=== PATIENT | female | born 1950 | race Hispanic/Latino ===

== ENCOUNTER → 2018-12-08 | Outpatient (CLI) | payer MEDICARE | LOC: RAD 11:42 | PROVIDERS: ATTEND Internal Medicine | DX: R07.9 Chest pain, unspecified (principal) | CPT/HCPCS: 93005 ==

== ENCOUNTER → 2019-04-28 | Outpatient (CLI) | payer MEDICARE ==
--- NOTE | 2019-05-06 13:51 | Polysomnography ---
DATE OF STUDY: REFERRING PHYSICIAN: STUDY: Polysomnography report. HISTORY OF PRESENT ILLNESS: The patient is a 68-year-old woman. She complains of snoring and excessive daytime sleepiness. She has difficulty initiating and maintaining sleep. INTERPRETATION: The patient came to the laboratory for a diagnostic study. The patient slept for 346.5 minutes out of 415 minutes. The sleep efficiency was 83.5%. The sleep onset latency was 21 minutes and 12 seconds. The latency to REM was 101.5 minutes. The patient spent 52.5 minutes in REM sleep, which was 15.2% of the night. There were a total of 18 apneic events and 12 hypopneic events. The apnea-hypopnea index was 5.2 events per hour. The [place] sleep score was 14. The minimal saturation was 87%. The minimal heart rate was 43 beats per minute. There were no arrhythmias. The patient did have some snoring. There were increased limb movements during sleep with a limb movement index of 26.5. IMPRESSION: 1. Mild obstructive sleep apnea. 2. Increased daytime somnolence is indicated by an [place] sleep score of 14. 3. Periodic limb movements disorder during sleep. PLAN: 1. Consider Auto PAP versus 2nd night sleep study with titration for obstructive sleep apnea. 2. Achieve and maintain an ideal body weight. 3. Avoid alcohol or sedatives prior to retiring at night. 4. Behavioral measures to treat insomnia. 5. Review the patient's medications for any medicines that may be worsening limb movements during sleep. 6. Consider ferritin and electrolytes to rule out any metabolic causes of increased limb movements during sleep. Alfredo Ge MD LM/EDDAL /[id number]
== END ==
LOC: SLEEP 20:02
PROVIDERS: ATTEND Internal Medicine Critical Care Medicine
DX: G47.33 Obstructive sleep apnea (adult) (pediatric) (principal)

== ENCOUNTER → 2020-10-18 | Outpatient (CLI) | payer MEDICARE | LOC: CT 13:29 | PROVIDERS: ATTEND Family Medicine | DX: R55 Syncope and collapse (principal); R51.9 Headache, unspecified; W19.XXXA Unspecified fall, initial encounter | CPT/HCPCS: 70450; 93880 ==

== ENCOUNTER 2022-07-09 19:12 | Emergency (ER) | payer MEDICARE ==
[~2022-07-09] VITALS: Ht 157.5 cm; Wt 85.3 kg
[2022-07-09 19:54] LABS: BASOPHILS # (AUTO) 0.1 (0.0-0.1); BASOPHILS % 0.5 % (0.0-1.0); EOSINOPHILS # (AUTO) 0.1 (0.0-0.4); EOSINOPHILS % 0.7 % (0.0-6.0); HEMATOCRIT 45.9 % (34.2-44.1); HEMOGLOBIN 15.2 g/dL (12.0-16.0); LYMPHOCYTES # (AUTO) 1.6 (1.0-3.2); LYMPHOCYTES % 12.8 % (18.0-39.1); MEAN CORPUSCULAR HEMOGLOBIN 31.6 pg (28-32); MEAN CORPUSCULAR HGB CONC 33.1 g/dL (31-35); MEAN CORPUSCULAR VOLUME 95.4 fL (81-99); MONOCYTES # (AUTO) 0.7 (0.2-0.8); MONOCYTES % 5.6 % (4.4-11.3); NEUTROPHILS # (AUTO) 9.7 (2.1-6.9); NEUTROPHILS % 79.4 % (38.7-80.0); PLATELET COUNT 307 x10e3/uL (140-360); RED BLOOD COUNT 4.81 x10e6/uL (3.6-5.1); RED CELL DISTRIBUTION WIDTH 12.2 % (11.7-14.4)
[2022-07-09 19:58] LABS: CLARITY,URINE SL CLOUDY (CLEAR); COLOR,URINE YELLOW (YELLOW)
[2022-07-09 19:59] LABS: KETONES,URINE NEGATIVE (NEGATIVE); LEUKOCYTE ESTERASE ,URINE NEGATIVE (NEGATIVE); NITRITE,URINE NEGATIVE (NEGATIVE); PROTEIN,URINE DIPSTICK NEGATIVE (NEGATIVE); URINE UROBILINOGEN 0.2 mg/dL (0.2 - 1)
[2022-07-09] MEDS ORDERED: SODIUM CHLORIDE 0.9% 1000ML 1,000 ML IV STA (20:05)
[2022-07-09 20:06] LABS: ALBUMIN 5.1 g/dL (3.5-5.0); ALBUMIN/GLOBULIN RATIO 1.4 (0.8-2.0); ANION GAP 16.8 mmol/L (8-16); CALCIUM 10.7 mg/dL (8.4-10.2); CREATININE, SERUM 1.35 mg/dL (0.57-1.11); POTASSIUM 3.8 mmol/L (3.5-5.1)
[2022-07-09 20:12] LABS: AMORPHOUS SEDIMENT,URINE FEW (FEW); BACTERIA,URINE FEW /HPF; EPITHELIAL CELLS,URINE FEW /LPF; WBC,URINE (MAN) 0-5 /HPF (0-5)
[2022-07-09] MEDS ORDERED: IOPAMIDOL 370 MG/ML 100 ML INFUS..BTL INJ ONE (20:33)
[2022-07-09] MEDS ORDERED: LOMOTIL TABLET1 EACH PO (22:01)
[2022-07-09 22:03] VITALS: BP 132/73
[2022-07-09] MEDS ORDERED: ONDANSETRON ODT4 MG PO (22:04)
== END 2022-07-09 22:15 | disposition home or self-care (01) ==
LOC: ER 19:17
DX: R10.13 Epigastric pain (principal); R11.2 Nausea with vomiting, unspecified; E11.65 Type 2 diabetes mellitus with hyperglycemia; I10 Essential (primary) hypertension; E78.5 Hyperlipidemia, unspecified
CPT/HCPCS: 36415; 74177; 80053; 81001; 82550; 82553; 83690; 84484; 85025; 93005; 99284; J7030; Q9967